=== PATIENT | female | born 1945 | race Caucasian/White ===

== ENCOUNTER 2017-04-05 11:54 | Day surgery (SDC) | payer MEDICARE, OTHER ==
[~2017-04-05] VITALS: Ht 160 cm; Wt 68.7 kg
[~2017-04-05 11:54] MED LIST: AMLO-145 PO; ASPI-535 PO
[2017-04-05 13:10] VITALS: Ht 160 cm; Wt 68.7 kg
[2017-04-05] MEDS ORDERED: DOXYCYCLINE HYCLATE PO (13:19)
[2017-04-05] MEDS ORDERED: ASPI-535 PO (13:19)
[2017-04-05] MEDS ORDERED: DOCUSATE PO (13:19)
[2017-04-05] MEDS ORDERED: OMEPRAZOLE PO (13:19)
[2017-04-05] MEDS ORDERED: LORATADINE PO (13:19)
[2017-04-05] MEDS ORDERED: SULINDAC (13:19)
[2017-04-05] MEDS ORDERED: AMLODIPINE PO (13:19)
[2017-04-05 15:48] VITALS: BP 180/76; PULSE 86; RESP 18
[2017-04-05] MEDS ORDERED: LIDOCAINE 2% (SDV) 5 ML INJ ONE (16:18)
[2017-04-05] MEDS ORDERED: PROPOFOL 40 ML ONE (16:18)
--- NOTE | 2017-04-05 16:42 | OPPN ---
Date/Time of Note Date/Time of Note DATE: 04/05/17 TIME: 16:40 Proc Note GI Procedure date: Apr 05, 2017 Pre-procedure Diagnosis * Colorectal cancer screening Post-procedure Diagnosis Assessment: * Normal colonic mucosa to cecum * Moderate-sized internal hemorrhoids Plan: * Annual Hemoccult stool testing * High-fiber diet * Screening colonoscopy in 10 years Operation Performed * Colonoscopy to cecum Surgeon: ERICKA GERONIMO MD Anesthesia Type: MAC Anesthesiologist: PLACIDO JORDAN Estimated blood loss: none Transfusion Required: no Specimen: none Grafts/Implants: none Complications: no Pt Condition post procedure: stable Disposition: PACU, other (Home) Procedure Description After informed consent, with the patient/relatives understanding the procedure, its indications and potential risks and complications, including but not limited to: Allergic reaction, bleeding, perforation, infection, and after all pertinent questions were answered to the patient's satisfaction, the patient/ relatives signed the witnessed informed consent. Following this, premedication was administered slowly IV push under careful cardiovascular and respiratory monitoring with pulse OXIMETRY, automatic blood pressure, and ekg monitor tech. Once the sedative effect was achieved, the patient was placed in the left lateral decubitus position, digital rectal examination was performed. The colonoscope was then introduced and advanced under visual control throughout all segments of the colon including: the rectum, sigmoid, descending colon, splenic flexure, transverse colon, hepatic flexure, ascending colon and finally reaching the cecum which was clearly identified by transillumination, finger indentation and the ileocecal valve. Careful examination of the mucosa of the lower gastrointestinal tract both on insertion as well as withdrawal of the instrument disclosed the following findings: PREPARATION QUALITY: [Adequate], RECTAL EXAM: The anorectal area was visualized examined and digital rectal examination performed with the following findings: No evidence of perirectal disease, no masses. COLONIC MUCOSA: The mucosa of all segments of the colon was carefully examined and showed the following findings: the examined mucosa appears within normal limits. There is no evidence of inflammatory changes, diverticular formation, polyps or other neoplasms, vascular malformation, or any other abnormality. Moderate size internal hemorrhoids present The instrument was then withdrawn, the patient tolerated the procedure well and was transferred out of the Endoscopy Suite awake and in good condition to continue recovery under observation. ERICKA GERONIMO MD Apr 05, 2017 16:42
[2017-04-05 17:09] VITALS: BP 153/60; RESP 18
== END 2017-04-05 18:57 | disposition home or self-care (01) ==
LOC: GIL 11:54
PROVIDERS: ATTEND Internal Medicine Gastroenterology
DX: Z12.11 Encounter for screening for malignant neoplasm of colon (principal); K64.8 Other hemorrhoids; I10 Essential (primary) hypertension

== ENCOUNTER 2018-08-17 05:58 | Observation (INO) | payer MEDICARE, OTHER ==
[~2018-08-17] VITALS: Ht 152.4 cm; Wt 75.1 kg
[2018-08-17] VITALS (8 sets, daily range): BP systolic 110–141; BP diastolic 55–63; PULSE 63–80; RESP 18–20; Ht 152.4 cm; Wt 75.1 kg
[~2018-08-17 05:58] MED LIST changes: -AMLO-145 PO; +AMLODIPINE PO; +DOCUSATE PO; +DOXYCYCLINE HYCLATE PO; +LORATADINE PO; +OMEPRAZOLE PO; +SULINDAC
[2018-08-17] MEDS ORDERED: LORAZEPAM 0.5 MG TAB PO PRN (12:00)
[2018-08-17] MEDS ORDERED: ONDANSETRON 4 MG INJ IV PRN (12:00)
[2018-08-17] MEDS ORDERED: ACETAMINOPHEN 325 MG TAB PO PRN (12:00)
[2018-08-17] MEDS ORDERED: ZOLPIDEM 5 MG TAB PO PRN (12:00)
[2018-08-17] MEDS: AMLODIPINE 5 MG TAB PO SCH (13:00)
--- NOTE | 2018-08-17 16:53 | CONS ---
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 after 08/18 0500 for EGD tomorrow Endoscopy - risks/benefits/alternatives/indications of procedure and sedation/anesthesia discussed with patient who states understanding and gives informed consent to proceed. Stool for CDIFF pending- will add Stool cx Patient seen in collaboration with Dr. Renee Results 24hrs Laboratory Tests Test 08/17/18 11:54 Creatine Kinase 71 Creatine Kinase Index 1.9 Creatinine Kinase MB (Mass) 1.38 Troponin I 0.043 CC: ERICKA RENEE MD ; Consultation Date/Type/Reason Admit Date/Time Aug 17, 2018 at 08:31 Date of Consultation: Aug 17, 2018 Type of Consult GI Reason for Consultation Coffee-ground emesis Hx of Present Illness This a 73-year-old Bangladeshi-speaking female who presented to [facility] with complaints of vomiting/diarrhea/subjective fever of max 101. Patient had been dealing with acid reflux throughout the day took tums which did not help her sx. She got up to use the bathroom and started having profuse emesis that appeared to be coffee color, her daughter called 911, and she was taken to [facility]. There labs were obtained at, WBC this morning was 11.4, hemoglobin 13.7, hematocrit 42, MCV 84, MCH 27 Plt count [address] abdomen/pelvis without contrast was obtained at the outside hospital full report is in the chart impression states no acute process in the image abdomen or pelvis, mild colonic diverticulosis, hiatal hernia, mild aortic atherosclerosis chest x-ray was obtained showing no evidence of acute cardiopulmonary disease, calcified thoracic aortic arch. She was transferred to [facility] due to insurance reasons. Here cardiac labs were obtained showing a troponin of 0.043 CK-MB 1.38, CK 71. Currently patient states she feels no complaints of nausea vomiting currently she did have an episode of diarrhea sample was sent for C. difficile she has been afebrile she [facility], stool is described as dark and watery. Family is at bedside discussed plan for EGD tomorrow reviewed risk/benefits/alternatives all verbalized understanding agreeable to procedure. Review of Systems: A 12 system, review was conducted and is negative except as noted in the HPI or here. Past Medical History Medications Current Medications Lorazepam (Ativan) 0.5 mg Q8H PRN PO anxiety; Start 08/17/18 at 12:00 Ondansetron HCl (Zofran Inj) 4 mg Q6H PRN IV nausea and vomiting; Start 08/17/18 at 12:00 Acetaminophen (Tylenol Tab) 650 mg Q6H PRN PO pain or fever; Start 08/17/18 at 12:00 Zolpidem Tartrate (Ambien) 5 mg QHS PRN PO insomnia; Start 08/17/18 at 12:00 Enoxaparin Sodium (Lovenox) 40 mg DAILY SC ; Start 08/18/18 at 09:00 Aspirin (Halfprin) 81 mg DAILY PO ; Start 08/18/18 at 09:00 Amlodipine Besylate (Norvasc) 5 mg DAILY PO ; Start 08/17/18 at 13:00 Pantoprazole (Protonix Iv) 40 mg BID@06,18 IV ; Start 08/17/18 at 18:00 Docusate Sodium (Colace) 100 mg BID PO ; Start 08/17/18 at 21:00 Loratadine (Claritin) 10 mg DAILY PO ; Start 08/18/18 at 09:00 Allergies: Coded Allergies: No Known Allergy (Unverified , 04/05/17) Social History Smoking Status: Never smoker Exam/Review of Systems Vital Signs Vitals Vital Signs Date Temp Pulse Resp B/P (MAP) Pulse Ox O2 O2 Flow FiO2 Time Delivery Rate 08/17/18 67 16:12 08/17/18 97.9 20 113/55 98 15:27 (74) Exam PHYSICAL EXAMINATION: GENERAL: Well developed, well nourished, alert & oriented x 3, in no acute distress SKIN: No lesions EYES: Pupils equal reactive to light, no discharge. EARS/NOSE AND THROAT: Ears normal, nose normal, oropharynx normal NECK: Supple, no masses CHEST: Inspection within normal limits. CARDIOVASCULAR: Heart: Regular rate and rhythm, RESPIRATORY: Lungs clear to auscultation GASTROINTESTINAL AND LIVER: Abdomen: Soft, non tenderness, non-distended, no hernias, no masses, no organomegaly, no ascites, no guarding, no rebound tenderness, normoactive bowel sounds. Rectal: Deferred. Medications Medications Current Medications Lorazepam (Ativan) 0.5 mg Q8H PRN PO anxiety; Start 08/17/18 at 12:00 Ondansetron HCl (Zofran Inj) 4 mg Q6H PRN IV nausea and vomiting; Start 08/17/18 at 12:00 Acetaminophen (Tylenol Tab) 650 mg Q6H PRN PO pain or fever; Start 08/17/18 at 12:00 Zolpidem Tartrate (Ambien) 5 mg QHS PRN PO insomnia; Start 08/17/18 at 12:00 Enoxaparin Sodium (Lovenox) 40 mg DAILY SC ; Start 08/18/18 at 09:00 Aspirin (Halfprin) 81 mg DAILY PO ; Start 08/18/18 at 09:00 Amlodipine Besylate (Norvasc) 5 mg DAILY PO ; Start 08/17/18 at 13:00 Pantoprazole (Protonix Iv) 40 mg BID@06,18 IV ; Start 08/17/18 at 18:00 Docusate Sodium (Colace) 100 mg BID PO ; Start 08/17/18 at 21:00 Loratadine (Claritin) 10 mg DAILY PO ; Start 08/18/18 at 09:00 DAVID RANDLE Aug 17, 2018 16:45
[2018-08-17] MEDS: PANTOPRAZOLE 40 MG INJ IV SCH (17:48)
--- NOTE | 2018-08-17 18:51 | NUR ---
EOSS Direct admit from [place]. Complaining of projectile vomiting and coffee ground emesis with fever. 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 Diagnosis Upper GI bleed. Patient for EGD tomorrow 08/18/18 around 1600. Consent signed by patient and placed in chart. NPO at 0500 08/18/18. Patient Urinalysis and stool cdiff collected and sent to the lab. Feces culture yet to be collected. Family bedside throughout whole shift. No signs of pain or respiratory distress. Bed brakes on, side rails up, call light within reach. Will endorse to shift nurse manager.
[2018-08-17] MEDS: DOCUSATE SODIUM 100 MG CAP PO SCH (21:00)
[2018-08-17] MEDS: SOD CHLORIDE 0.9% 1,000 ML IV SCH (21:52)
[2018-08-18] VITALS (18 sets, daily range): BP systolic 57–162; BP diastolic 39–72; PULSE 69–98; RESP 10–22
[2018-08-18] MEDS: PANTOPRAZOLE 40 MG INJ IV SCH ×2 (05:42→17:12)
[2018-08-18] MEDS ORDERED: PANTOPRAZOLE (EC) 40 MG TAB PO SCH (06:00)
--- NOTE | 2018-08-18 07:31 | NUR ---
EOSS; Patient awake, alert, oriented, resting in bed, denies pain , not in distress. Bed alarm on at all times for patient's safety. bedside report given to AM nurse.
[2018-08-18] MEDS: DOCUSATE SODIUM 100 MG CAP PO SCH ×2 (09:00→20:43)
[2018-08-18] MEDS ORDERED: LORATADINE 10 MG TAB PO SCH (09:00)
[2018-08-18] MEDS: AMLODIPINE 5 MG TAB PO SCH (09:44)
[2018-08-18] MEDS: ASPIRIN (EC) 81 MG TAB PO SCH (09:44)
[2018-08-18] MEDS: ENOXAPARIN 40 MG/0.4 ML SYG SC SCH (09:59)
[2018-08-18] MEDS: SOD CHLORIDE 0.9% 1,000 ML IV SCH (11:26)
--- NOTE | 2018-08-18 16:04 | PREAC ---
Date/Time of Note Date/Time of Note DATE: 08/18/18 TIME: 16:03 Anesthesia Eval and Record Evaluation Time Pre-Procedure Interview DATE: 08/18/18 TIME: 16:03 Age 73 Sex female NPO: 8 hrs Preoperative diagnosis Hx of Hematemesis Planned procedure EGD Past Medical History Past Medical History: Includes Cardio: HTN Heme: Anemia Surgery & Anesthesia Issues No known issue Meds Anticoagulation: No Beta Everett within 24 hr: No Reason Beta Everett not given: Pt. not on B-Everett Reported Medications [Doxycycline Hyclate] No Conflict Check, PO DAILY 04/05/17 [Sulindac] No Conflict Check, DAILY 04/05/17 Aspirin Ec (Aspir 81) 81 Mg Tablet.dr, 81 MG PO DAILY, #30 TAB 04/05/17 [Amlodipine] No Conflict Check, PO DAILY 04/05/17 [Loratadine] No Conflict Check, PO DAILY 04/05/17 [Docusate] No Conflict Check, PO DAILY for CONSTIPATION 04/05/17 [Omeprazole] No Conflict Check, PO DAILY 04/05/17 Current Medications Lorazepam (Ativan) 0.5 mg Q8H PRN PO anxiety; Start 08/17/18 at 12:00 Ondansetron HCl (Zofran Inj) 4 mg Q6H PRN IV nausea and vomiting; Start 08/17/18 at 12:00 Acetaminophen (Tylenol Tab) 650 mg Q6H PRN PO pain or fever; Start 08/17/18 at 12:00 Zolpidem Tartrate (Ambien) 5 mg QHS PRN PO insomnia; Start 08/17/18 at 12:00 Enoxaparin Sodium (Lovenox) 40 mg DAILY SC Last administered on 08/18/18at 09:59; Admin Dose 40 MG; Start 08/18/18 at 09:00 Aspirin (Halfprin) 81 mg DAILY PO Last administered on 08/18/18at 09:44; Admin Dose 81 MG; Start 08/18/18 at 09:00 Amlodipine Besylate (Norvasc) 5 mg DAILY PO Last administered on 08/18/18at 09:44; Admin Dose 5 MG; Start 08/17/18 at 13:00 Pantoprazole (Protonix Iv) 40 mg BID@06,18 IV Last administered on 08/18/18at 05:42; Admin Dose 40 MG; Start 08/17/18 at 18:00 Docusate Sodium (Colace) 100 mg BID PO ; Start 08/17/18 at 21:00 Loratadine (Claritin) 10 mg DAILY PO Last administered on 08/18/18at 09:43; Admin Dose 10 MG; Start 08/18/18 at 09:00 Sodium Chloride 1,000 ml @ 70 mls/hr [id number] IV Last administered on 08/18/18at 11:26; Admin Dose 70 MLS/HR; Start 08/17/18 at 21:30 Meds reviewed: Yes Allergies Coded Allergies: No Known Allergy (Unverified , 04/05/17) Allergies Reviewed: Yes Labs/Studies Labs Reviewed: Reviewed by anesthesiologist Result Diagram: 08/18/1804 08/18/18 0604 Laboratory Tests 08/18/18 06:04 test: N/A Pre-procedure Exam Last vitals Vital Signs Date Temp Pulse Resp B/P (MAP) Pulse Ox O2 O2 Flow FiO2 Time Delivery Rate 08/18/18 76 12:01 08/18/18 98.0 16 116/54 94 11:25 (74) Airway: Adequate mouth opening, Adequate thyromental dist Mallampati: Mallampati II Teeth: Normal Lung: Normal Heart: Normal ASA Physical Status ASA physical status: 3 Emergency: None Planned Anesthetic General/MAC: MAC Planned Pain Management Parenteral pain med Pre-operative Attestations Prior to commencing anesthesia and surgery, the patient was re-evaluated, there was verification of: *The patient's identity *The results of appropriate recent lab work and preoperative vital signs *The above evaluation not changing prior to induction *Anesthetic plan, risk benefits, alternative and complications discussed with patient/family; questions answered; patient/family understands, accepts and wishes to proceed. NATHANIEL JENNINGS MD Aug 18, 2018 16:04
[2018-08-18] MEDS ORDERED: PROPOFOL 20 ML ONE (16:18)
--- NOTE | 2018-08-18 16:23 | NUR ---
RECEIVED PATIENT FROM GI LAB FULLY AWAKE DENIES PAIN SR .BP STABLE .SATURATING 94%ON ROOM AIR.
--- NOTE | 2018-08-18 16:24 | PAC ---
Date/Time of Note Date/Time of Note DATE: 08/18/18 TIME: 16:24 Post-Anesthesia Notes Post-Anesthesia Note Last documented vital signs Vital Signs Date Temp Pulse Resp B/P (MAP) Pulse Ox O2 O2 Flow FiO2 Time Delivery Rate 08/18/18 76 12:01 08/18/18 98.6 72 16 116/54 94 16:25 (74) Activity: WNL Respiratory function: WNL Cardiovascular function: WNL Mental status: Baseline Pain reasonably controlled: Yes Hydration appropriate: Yes Nausea/Vomiting absent: Yes NATHANIEL JENNINGS MD Aug 18, 2018 16:24
--- NOTE | 2018-08-18 16:27 | HPN ---
Date/Time of Note Date/Time of Note DATE: 08/18/18 TIME: 16:27 Interval H&P Admission Note Pt. seen H&P reviewed: No system changes ALEJANDRO SMITH Aug 18, 2018 16:27
[2018-08-18] MEDS ORDERED: ONDANSETRON 4 MG INJ IV PRN (16:30)
[2018-08-18] MEDS ORDERED: METOCLOPRAMIDE 10 MG INJ IV PRN (16:30)
[2018-08-18] MEDS ORDERED: FENTAnyl 50 MCG/ML VIAL IV PRN ×2 (16:30)
[2018-08-18] MEDS ORDERED: LABETALOL HCL 20MG INJ IV PRN (16:30)
[2018-08-18] MEDS ORDERED: morphine (1 MG/ML) 10ML SYRINGE IV PRN ×2 (16:30)
[2018-08-18] MEDS ORDERED: hydrALAzine 20 MG INJ IV PRN (16:30)
[2018-08-18] MEDS ORDERED: EPHEDrine SULFATE 50 MG/5 ML SYG IV PRN (16:30)
--- NOTE | 2018-08-18 17:05 | NUR ---
TRANSFERRED TO [facility] IN STABLE CONDITION .REPORT GIVEN TO LOUISE MARTINEZ
--- NOTE | 2018-08-18 19:00 | NUR ---
EOSS Direct admit from [place] 08/17/18. Complaining of projectile vomiting and coffee ground emesis with fever. 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 Diagnosis Upper GI bleed. EGD done today. No signs of bleeding. Gastritis found. Pre op diet of clear liquids resumed. Family bedside throughout whole shift. No signs of pain or respiratory distress. Bed brakes on, side rails up, call light within reach. Will endorse to shift nurse manager.
--- NOTE | 2018-08-18 19:58 | PN ---
Date/Time of Note Date/Time of Note DATE: 08/18/18 TIME: 14:58 Assessment/Plan VTE Prophylaxis Risk score (from Ns)>0 risk: 4 SCD applied (from [facility]): Yes Pharmacological prophylaxis: NA/contraindicated Pharm contraindication: bleeding Lines/Catheters IV Catheter Type (from [facility]): Peripheral IV Urinary Cath still in place: No Assessment/Plan Assessment/Plan 71-year-old female who had presented with one episode of projectile vomiting and coffee-ground emesis currently managed as follows: 1. coffee ground emesis / GERD: - egd today, continue PPI 2. HTN: good control. cont meds 3. diarrhea: f/u C diff, no more 4. hx of rosacea: on chronic abx therapy Dispo: Continue supportive care, f/u EGD findings Result Diagram: 08/18/18 0604 08/18/18 0604 Results 24hrs Laboratory Tests Test 08/18/18 06:04 White Blood Count 6.5 Red Blood Count 3.93 L Hemoglobin 10.6 L Hematocrit 34.8 L Mean Corpuscular Volume 88.5 Mean Corpuscular Hemoglobin 27.0 L Mean Corpuscular Hemoglobin Concent 30.5 L Red Cell Distribution Width 14.3 Platelet Count 181 Mean Platelet Volume 10.4 Immature Granulocytes % 0.300 Neutrophils % 62.3 Lymphocytes % 27.5 Monocytes % 8.5 Eosinophils % 1.2 Basophils % 0.2 Nucleated Red Blood Cells % 0.0 Immature Granulocytes # 0.020 Neutrophils # 4.1 Lymphocytes # 1.8 Monocytes # 0.6 Eosinophils # 0.1 Basophils # 0.0 Nucleated Red Blood Cells # 0.0 Sodium Level 146 H Potassium Level 3.5 Chloride Level 110 Carbon Dioxide Level 26 Anion Gap 10 Blood Urea Nitrogen 8 Creatinine 0.75 Est Glomerular Filtrat Rate mL/min Glucose Level 94 Calcium Level 7.9 L Magnesium Level 2.0 Triglycerides Level 96 Cholesterol Level 124 LDL Cholesterol, Calculated 69 HDL Cholesterol 36 Cholesterol/HDL Ratio 3.4 Subjective 24 Hr Interval Summary Free Text/Dictation no new complaints, no more vomiting Exam/Review of Systems Exam Vitals Vital Signs Date Temp Pulse Resp B/P (MAP) Pulse Ox O2 O2 Flow FiO2 Time Delivery Rate 08/18/18 72 19 57/39 (45) 95 Room Air 16:54 08/18/18 98.5 16:29 Intake and Output 08/17/18 08/17/18 08/18/18 1515:00 23:00 07:00 IntakeIntake Total 500 ml 925 ml BalanceBalance 500 ml 925 ml Constitutional: alert, oriented; No distress Head: normocephalic Respiratory: clear to auscultation Cardiovascular: regular rate and rhythm Gastrointestinal: soft, non-tender, bowel sounds Extremities: No edema Results Results 24hrs Laboratory Tests Test 08/18/18 06:04 White Blood Count 6.5 Red Blood Count 3.93 L Hemoglobin 10.6 L Hematocrit 34.8 L Mean Corpuscular Volume 88.5 Mean Corpuscular Hemoglobin 27.0 L Mean Corpuscular Hemoglobin Concent 30.5 L Red Cell Distribution Width 14.3 Platelet Count 181 Mean Platelet Volume 10.4 Immature Granulocytes % 0.300 Neutrophils % 62.3 Lymphocytes % 27.5 Monocytes % 8.5 Eosinophils % 1.2 Basophils % 0.2 Nucleated Red Blood Cells % 0.0 Immature Granulocytes # 0.020 Neutrophils # 4.1 Lymphocytes # 1.8 Monocytes # 0.6 Eosinophils # 0.1 Basophils # 0.0 Nucleated Red Blood Cells # 0.0 Sodium Level 146 H Potassium Level 3.5 Chloride Level 110 Carbon Dioxide Level 26 Anion Gap 10 Blood Urea Nitrogen 8 Creatinine 0.75 Est Glomerular Filtrat Rate mL/min Glucose Level 94 Calcium Level 7.9 L Magnesium Level 2.0 Triglycerides Level 96 Cholesterol Level 124 LDL Cholesterol, Calculated 69 HDL Cholesterol 36 Cholesterol/HDL Ratio 3.4 PRETTY EUGENE Aug 18, 2018 19:58
--- NOTE | 2018-08-18 21:06 | HP ---
DATE OF ADMISSION: 08/17/2018 PRESENTING COMPLAINT: Abdominal pain, projectile vomiting and coffee-ground emesis. HISTORY OF PRESENTING COMPLAINT: The patient is a 74-year-old female who resides with her daughter a nd she had gone to the emergency room at [facility] today where she was taken by her daugh evangelina after an episode of projectile vomiting with coffee-ground substances and a fever of 101. The pa michelle has a history of acid reflux. She was taken symptoms for that prior to presenting there. The daughter was scared at the intensity of the vomit and call 911 to take the patient to the emergency r oom. The hemoglobin was 13. Upon presentation, a CT was done that did not show any acute process in the abdomen. A chest x-ray also showed no acute cardiopulmonary disease. She was transferred to us for insurance reasons. I did, however, review the patient. She has had no further vomiting. She h as had 1 diarrheal episode, she had no further fever. She denies chest pain, she denied passing out episodes. Her daughter is at the bedside and very worried and concerned about her. She is being adm itted for further workup for upper GI bleed. PAST MEDICAL HISTORY: 1. Positive for GERD. 2. Hypertension. 3. Chronic allergy. 4. Cirrhosis on doxycycline therapy for years. 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 ALLERGIES: NO KNOWN DRUG ALLERGIES. SOCIAL HISTORY: Denies tobacco, alcohol or illicit drug use. FAMILY HISTORY: Noncontributory. Negative for cancer of colon. Also, ____ premature coronary arter y disease. REVIEW OF SYSTEMS: A 12-point review of systems and pertinent findings are as noted. HOME MEDICATIONS: Reviewed and reconciled. PHYSICAL EXAMINATION VITAL SIGNS: Temperature 97.9, pulse 67, respirations 20, blood pressure 113/55, saturations are 98% on room air. GENERAL: Lethargic but alert, oriented, in no distress. HEENT: Head is normocephalic without evidence of trauma. Pupils are equal and reactive. Mucous mem branes are moist. Posterior pharynx is clear of erythema and exudates. There is no scleral jaundice . There is mild conjunctival pallor. CHEST: Clear to auscultation with diminished breath sounds bilaterally. No crackles or wheezes. CARDIOVASCULAR: Heart sounds S1, S2, without added sounds or murmurs. ABDOMEN: Soft, nontender, nondistended. Normoactive bowel. SKIN: Devoid of rash or jaundice. PSYCHIATRIC: She was calm, cooperative with exam. LABORATORY VALUES: Values from the referring hospital were reviewed and summarized in HPI. No repea t has been done yet so far, and ____ to get set of cardiac enzymes which has been negative. Urinalys is shows few bacteria and 6 white blood cells and slightly cloudy. EKG done at the referral center p er report was negative. ASSESSMENT: A 73-year-old female with a history of GERD who presents with acute onset of vomiting an d coffee-ground stools being admitted and managed for further workup. 1. Coffee-ground emesis concern for possible gastrointestinal bleed. We will start the patient on b .i.d. PPI therapy. We will also get a GI consultation for possible upper endoscopy. 2. Chronic hypertension with fair control. Resume home medication. 3. Possible urinary tract infection. 4. Chronic hypochromic anemia, rule out chronic gastrointestinal blood loss. 5. Diarrhea, rule out Clostridium difficile as the patient is on chronic doxycycline therapy for ros acea. 6. History of ventriculoperitoneal shunt. PLAN: Plan of care has been discussed with patient in detail, questions have been answered. I have also spoken with her daughter in detail. I will put a consult to GI for further interventions will d epend on her clinical course. Dictated By: PRETTY EUGENE MD, BA/BIN Conf#: [id number] DID#: [id number]
[2018-08-19] VITALS (12 sets, daily range): BP systolic 117–151; BP diastolic 53–75; PULSE 58–71; RESP 18–19
[2018-08-19] MEDS: PANTOPRAZOLE 40 MG INJ IV SCH ×2 (06:20→17:40)
--- NOTE | 2018-08-19 07:00 | NUR ---
EOSS: Patient resting comfortably in stable condition. Pt a/o X4 and on room air. VS stable. Will endorse to oncoming RN.
[2018-08-19] MEDS: DOCUSATE SODIUM 100 MG CAP PO SCH ×2 (09:29→22:00)
[2018-08-19] MEDS: AMLODIPINE 5 MG TAB PO SCH (09:30)
[2018-08-19] MEDS: ASPIRIN (EC) 81 MG TAB PO SCH (09:30)
--- NOTE | 2018-08-19 09:31 | NUR ---
NURSES NOTES: INTERPRETIVE SERVICES CALLED SPOKE WITH INDUSTRIAL EDUCATION TEACHER BETSY #[phone] TO GO OVER PTS SCHEDULED MEDICATIONS AND MEDICATION TEACHING AND SIDE EFFECTS . PT VERBALIZED UNDERSTANDING. INFORMED PT TO PRESS CALL LIGHT WHEN SHE NEEDS ASSISTANCE OR HAS ANY QUESTIONS THROUGHOUT THE SHIFT. FALL AND SAFETY PRECAUTIONS IMPLEMENTED. WILL CONTINUE TO MONITOR AND ASSESS PT THROUGHOUT THE SHIFT
--- NOTE | 2018-08-19 09:36 | NUR ---
NURSES NOTES: CALLED PHARMACY SPOKE WITH SILVESTRE AND INFORMED HIM THAT MEDICATION LORATADINE NO SCANNING- WHEN SCANNING MESSAGE BOX STATES UNKNOWN NDC NUMBER. PHARMACY STATED THEY WILL HAVE LABEL SENT UP TO UNIT TO HAVE SCANNED. CLARITIN DOSE WILL BE ON HOLD UNTIL LABEL IS SCANNED.
[2018-08-19] MEDS: ENOXAPARIN 40 MG/0.4 ML SYG SC SCH (09:42)
[2018-08-19] MEDS ORDERED: LORATADINE 10 MG TAB PO SCH (11:00)
--- NOTE | 2018-08-19 17:44 | PN ---
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 Diarrhea, Fevers -likely UTI related. ON treatemtn. -biopsies taken to evaluate enteric causes of diarrhea- negative, no findi ngs. -fevers resolved. -Stool studies negative, c.difficile negative. HTN Hx of [employer] Plan: -advance diet -continue PPI -PPI once daily x 1 month. -no NSAIDs/aspirin -please reconsult GI as needed. Type of Consult GI Reason for Consultation Coffee-ground emesis Hx of Present Illness This a 73-year-old [place] Islander-speaking female who presented to [facility] with complaints of vomiting/diarrhea/subjective fever of max 101. Patient had been dealing with acid reflux throughout the day took tums which did not help her sx. She got up to use the bathroom and started having profuse emesis that appeared to be coffee color, her daughter called 911, and she was taken to [facility]. There labs were obtained at, WBC this morning was 11.4, hemoglobin 13.7, hematocrit 42, MCV 84, MCH 27 Plt count [address] ab domen/pelvis without contrast was obtained at the outside hospital full report is in the chart impression states no acute process in the image abdomen or pelvis, mild colonic diverticulosis, hiatal hernia, mild aortic atherosclerosis chest x-ray was obtained showing no evidence of acute cardiopulmonary disease, calcified thoracic aortic arch. She was transferred to [facility] due to insurance reasons. Here cardiac labs were obtained showing a troponin of 0.043 CK-MB 1.38, CK 71. Currently patient states she feels no complaints of nausea vomiting currently she did have an episode of diarrhea sample was sent for C. difficile she has been afebrile she arrived at [facility], stool is described as dark and watery. Family is at bedside discussed plan for EGD tomorrow reviewed risk/benefits/alternatives all verbalized understanding agreeable to procedure. Review of Systems: A 12 system, review was conducted and is negative except as noted in the HPI or here. Initial Consultation Hx Past Medical History Medications Current Medications Lorazepam (Ativan) 0.5 mg Q8H PRN PO anxiety; Start 08/17/18 at 12:00 Ondansetron HCl (Zofran Inj) 4 mg Q6H PRN IV nausea and vomiting; Start 08/17/18 at 12:00 Acetaminophen (Tylenol Tab) 650 mg Q6H PRN PO pain or fever; Start 08/17/18 at 12:00 Zolpidem Tartrate (Ambien) 5 mg QHS PRN PO insomnia; Start 08/17/18 at 12:00 Enoxaparin Sodium (Lovenox) 40 mg DAILY SC ; Start 08/18/18 at 09:00 Aspirin (Halfprin) 81 mg DAILY PO ; Start 08/18/18 at 09:00 Amlodipine Besylate (Norvasc) 5 mg DAILY PO ; Start 08/17/18 at 13:00 Pantoprazole (Protonix Iv) 40 mg BID@06,18 IV ; Start 08/17/18 at 18:00 Docusate Sodium (Colace) 100 mg BID PO ; Start 08/17/18 at 21:00 Loratadine (Claritin) 10 mg DAILY PO ; Start 08/18/18 at 09:00 Result Diagram: 08/18/18 0604 08/18/18 0604 Exam/Review of Systems Exam Vitals Vital Signs Date Temp Pulse Resp B/P (MAP) Pulse Ox O2 O2 Flow FiO2 Time Delivery Rate 08/19/18 65 16:50 08/19/18 98.1 18 117/53 96 Room Air 15:00 (74) Intake and Output 08/18/18 08/18/18 08/19/18 1515:00 23:00 07:00 IntakeIntake Total 810 ml 200 ml BalanceBalance 810 ml 200 ml Medications Medication Current Medications Lorazepam (Ativan) 0.5 mg Q8H PRN PO anxiety; Start 08/17/18 at 12:00 Ondansetron HCl (Zofran Inj) 4 mg Q6H PRN IV nausea and vomiting; Start 08/17/18 at 12:00 Acetaminophen (Tylenol Tab) 650 mg Q6H PRN PO pain or fever Last administered on 1/24/19at 23:10; Admin Dose 650 MG; Start 08/17/18 at 12:00 Zolpidem Tartrate (Ambien) 5 mg QHS PRN PO insomnia; Start 08/17/18 at 12:00 Enoxaparin Sodium (Lovenox) 40 mg DAILY SC Last administered on 08/19/18 09:42; Admin Dose 40 MG; Start 08/18/18 at 09:00 Aspirin (Halfprin) 81 mg DAILY PO Last administered on 08/19/18 09:30; Admin Dose 81 MG; Start 08/18/18 at 09:00 Amlodipine Besylate (Norvasc) 5 mg DAILY PO Last administered on 08/19/18 09:30; Admin Dose 5 MG; Start 08/17/18 at 13:00 Pantoprazole (Protonix Iv) 40 mg BID@06,18 IV Last administered on 08/19/18 06:20; Admin Dose 40 MG; Start 08/17/18 at 18:00 Docusate Sodium (Colace) 100 mg BID PO Last administered on 08/19/18at 09:29; Admin Dose 100 MG; Start 08/17/18 at 21:00 Loratadine (Claritin) 10 mg DAILY PO Last administered on 08/19/18at 11:01; Admin Dose 10 MG; Start 08/19/18 at 11:00 Ceftriaxone Sodium 50 ml @ 100 mls/hr ONCE ONCE IVPB ; Start 08/19/18 at 18:00; Stop 08/19/18 at 18:29 ALEJANDRO SMITH Aug 19, 2018 17:43
[2018-08-19] MEDS ORDERED: CEFTRIAXONE 1 GM/50 ML (PMX) 50 ML IVPB ONE (18:00)
--- NOTE | 2018-08-19 18:44 | PDOCDIS ---
Discharge Instructions DIAGNOSIS Discharge Diagnosis Gastritis CONDITION [id number] Patient Condition: [id number] Stable HOME CARE INSTRUCTIONS: [id number] Diet Instructions: Dsqcg0g Low Fat /Cholesterol [id number] Special Diet: Htlyn3n avoid caffeine OTHER ORDERS: Other Orders: Stopping NSAIDs If you are taking any NSAID medications, please stop them, regardless of whether or not they caused your ulcer. I recommend alternative medications to NSAIDs, such as acetaminophen (sample brand name: Tylenol). Take the proton pump inhibitor medication (Protonix) twice a day for at least 4 weeks . This is to help protect the lining of the digestive tract and promote it's healing In addition to taking prescribed medications and avoiding NSAIDs, there are other things you can do to relieve symptoms and help ulcers to heal: * Quit smoking, if you smoke * Limit the amount of alcohol you drink * Take antacids if they help you feel better follow up with the refined syrup operator using the information below Name, Degree: Brennen Renee MD Specialty: Gastroenterology Comments: Office Address: [address] [place] [id number] Office Office PRETTY EUGENE Aug 19, 2018 18:44
[2018-08-19] MEDS ORDERED: DOCU-216 PO (18:45)
[2018-08-19] MEDS ORDERED: PANT40TA3 PO (18:45)
[2018-08-19] MEDS ORDERED: LORA10TA3 PO (18:45)
[2018-08-19] MEDS ORDERED: AMLO-145 PO (18:45)
--- NOTE | 2018-08-19 19:37 | NUR ---
EOSS: PT WITH ORDERS FOR DISCHARGE FROM DR. EUGENE- ORDERS WERE UPDATED FROM MD AT 1834, NO S/S OF RESPIRATORY DISTRESS PT ON ROOM AIR. DENIES PAIN OR DISCOMFORT AT THIS TIME. PT CLEAN AND DRY. DAUGHTER AT BEDSIDE. ONE TIME DOSE OF CEFTRIAXONE IV X 1 ADMINISTERED PRIOR TO DISCHARGE ORDERED BY MD. FALL AND SAFETY PRECAUTIONS IMPLEMENTED. CALL LIGHT WITHIN REACH ABLE TO MAKE NEEDS KNOWN. BED IN LOWEST POSITION BRAKES LOCKED ROOM FREE OF CLUTTER. PERSONAL BELONGINGS PLACED CLOSE TO PT. ENDORSED PATIENT TO [employer] RN TO COMPLETE DISCHARGE AND PAPERWORK/EDUCATION AT THIS TIME.
--- NOTE | 2018-08-19 22:00 | NUR ---
Nursing Note: Per patient's family member Dr. Jimenez had mentioned prescribing home antibiotics for patient. No new antibiotic orders. Per luisito Morel RN give patient's family member doctor's phone number to clarify in the morning. Dr. Jimenez's office telephone number given to patient's family member.
--- NOTE | 2018-08-19 22:07 | NUR ---
Nursing Note: Patient and family member verbalize understanding of discharge instructions. Patient signed discharge paperwork. Patient discharged via wheelchair in stable condition accompanied by family member. Pt a/o X4 and on room air air. IV discontinued. VS stable. Belongings with patient.
[2018-09-03] MEDS ORDERED: LEVO500T48 PO ×2 (11:37→11:41)
[2018-09-03] MEDS ORDERED: LACT1CAP57 PO (11:41)
--- NOTE | 2018-09-03 13:24 | DS ---
DATE OF ADMISSION: 08/17/2018 DATE OF DISCHARGE: 08/19/2018 PRESENTING COMPLAINT: Abdominal pain, projectile vomiting and coffee-ground emesis. FINAL DISCHARGE DIAGNOSES: 1. Abdominal pain, now resolved. 2. Coffee-ground emesis, also resolved secondary to Yecenia-Krishnan tear, status post EGD that no long er showed bleed. 3. Urinary tract infection, on treatment. 4. Hypertension. 5. History of rosacea, on antibiotic therapy. CONSULTS ON THE CASE: Gastroenterology, Dr. Hook. INTERVENTIONS: The patient underwent EGD. SHORT HOSPITAL COURSE: Full details are available in the chart for review. In summary, this pleasan t patient came in, brought in by her daughter because of projectile vomiting, abdominal pain and coff ee-ground emesis. She underwent EGD that showed no active bleeding, possible Yecenia-Krishnan tear. Po st-EGD, she was started on a diet, which she tolerated very well and is being discharged in stable co ndition. Abdominal pain, nausea, and vomiting could have been related to her urinary tract infection and due to force of vomiting, she sustained a Yecenia-Krishnan tear, which seems to be healing nicely. She will be discharged home on PPI therapy twice a day. DISPOSITION: To home. DISCHARGE ACTIVITY: As tolerated. DISCHARGE FOLLOWUP: Follow up with PCP in 1 to 2 weeks. DISCHARGE MEDICATIONS: For a complete list of discharge medications, please review the patient's felton rt. Dictated By: PRETTY EUGENE MD BA/NTS Conf#: [id number] DID#: [id number] CC: DEVIN HANNA MD;*EndCC*
== END 2018-08-19 22:07 | disposition home or self-care (01) ==
LOC: INTOOBSV 08:31 → TEL 08:31
PROVIDERS: ADMIT Family Medicine; ATTEND Family Medicine
DX: K29.50 Unspecified chronic gastritis without bleeding (principal); I10 Essential (primary) hypertension; R19.7 Diarrhea, unspecified
CPT/HCPCS: 43239; 80048; 80061; 81001; 82550; 82553; 83735; 84484; 85025; 87045; 87075; 87086; 88305; 88312; C9113; G0378; J0696; J1650; J7030; 99217